=== PATIENT | female | born 1975 | race Caucasian/White ===

== ENCOUNTER 2021-10-08 19:53 | Emergency (ER) | payer OTHER ==
[~2021-10-08] VITALS: Ht 154.9 cm; Wt 79.4 kg
[2021-10-08] MEDS ORDERED: SEROQUEL XR400 MG PO (20:40)
[2021-10-08] MEDS ORDERED: DEPAKOTE ER500 M1 PO (20:41)
[2021-10-08] MEDS ORDERED: TRAZODONE HCL50 MG PO (20:41)
[2021-10-08] MEDS ORDERED: VISTARIL50 MG PO (20:41)
[2021-10-08] MEDS ORDERED: PROZAC40 MG PO (20:41)
[2021-10-08 21:09] LABS: ABSOLUTE NEUTROPHILS 6.5 thou/uL (1.4-8.2); BASOPHILS 0.3 % (0.0-2.0); HEMATOCRIT 37.3 % (37.0-47.0); HEMOGLOBIN 12.2 gm/dL (12.0-15.0); LYMPHOCYTES 6.3 % (24.0-44.0); MCH 29.9 pg (26.0-34.0); MCHC 32.6 g/dL (28.0-37.0); MCV 91.7 fL (80.0-100.0); MONOCYTES 6.2 % (1.0-8.0); PLATELET COUNT 225 thou/uL (150-400); POLYS 86.2 % (36.0-66.0); RBC 4.06 mil/uL (4.20-5.00); RDW 14.3 % (10.5-14.5); WBC 7.6 thou/uL (4.0-11.0)
[2021-10-08 21:11] LABS: AMP/METHAMP Negative (Negative); BARBITURATES Negative (Negative); BENZODIAZEPINES Negative (Negative); COCAINE POSITIVE (Negative); METHADONE Negative (Negative); OPIATES Negative (Negative); PCP Negative (Negative)
[2021-10-08 21:14] LABS: CALCIUM 8.4 mg/dL (8.5-10.1); CREATININE 0.6 mg/dL (0.6-1.0); POTASSIUM 3.3 mmol/L (3.5-5.1)
[2021-10-08 21:20] LABS: ALBUMIN 3.5 g/dL (3.4-5.0); TOTAL BILIRUBIN 0.6 mg/dL (0.2-1.0); TOTAL PROTEIN 7.3 g/dL (6.4-8.2)
[2021-10-08] MEDS ORDERED: ZOFRAN ODT4 MG PO (21:35)
[2021-10-08] MEDS ORDERED: NAPROSYN500 MG PO (21:35)
[2021-10-08 21:52] VITALS: BP 134/83
== END 2021-10-08 21:52 | disposition home or self-care (01) ==
LOC: ER 19:53
PROVIDERS: Emergency Medicine
DX: U07.1 COVID-19 (principal); R11.0 Nausea; Z79.899 Other long term (current) drug therapy

== ENCOUNTER 2021-10-13 06:53 | Emergency (ER) | payer OTHER ==
[~2021-10-13] VITALS: Ht 154.9 cm; Wt 79.4 kg
[~2021-10-13 06:53] MED LIST: DEPAKOTE ER500 M1 PO; NAPROSYN500 MG PO; PROZAC40 MG PO; SEROQUEL XR400 MG PO; TRAZODONE HCL50 MG PO; VISTARIL50 MG PO; ZOFRAN ODT4 MG PO
[2021-10-13 07:11] VITALS: BP 100/66
== END 2021-10-13 08:09 | disposition home or self-care (01) ==
LOC: ER 06:53
DX: U07.1 COVID-19 (principal); Z79.899 Other long term (current) drug therapy

== ENCOUNTER 2021-10-18 07:43 | Emergency (ER) | payer OTHER ==
[~2021-10-18] VITALS: Ht 154.9 cm; Wt 80.7 kg
[2021-10-18 11:19] LABS: HEMATOCRIT 41.2 % (37.0-47.0); HEMOGLOBIN 13.6 gm/dL (12.0-15.0); MCH 29.9 pg (26.0-34.0); MCV 90.5 fL (80.0-100.0); PLATELET COUNT 167 thou/uL (150-400); RBC 4.55 mil/uL (4.20-5.00); RDW 14.2 % (10.5-14.5); WBC 2.2 thou/uL (4.0-11.0)
[2021-10-18 11:31] LABS: CALCIUM 8.8 mg/dL (8.5-10.1); POTASSIUM 3.9 mmol/L (3.5-5.1)
[2021-10-18 11:38] LABS: ALBUMIN 2.9 g/dL (3.4-5.0); TOTAL BILIRUBIN 0.5 mg/dL (0.2-1.0); TOTAL PROTEIN 7.9 g/dL (6.4-8.2)
[2021-10-18 12:53] LABS: ABSOLUTE NEUTROPHILS 1.5 thou/uL (1.4-8.2); PLATELET ESTIMATE NORMAL
[2021-10-18 13:44] VITALS: BP 105/67
== END 2021-10-18 13:45 | disposition home or self-care (01) ==
LOC: ER 07:43
PROVIDERS: Emergency Medicine
DX: U07.1 COVID-19 (principal); F32.9 Major depressive disorder, single episode, unspecified; F41.9 Anxiety disorder, unspecified; F17.200 Nicotine dependence, unspecified, uncomplicated; Z79.899 Other long term (current) drug therapy

== ENCOUNTER 2021-10-24 11:18 | Emergency (ER) | payer OTHER ==
[~2021-10-24] VITALS: Ht 154.9 cm; Wt 79.4 kg
[2021-10-24 11:35] VITALS: BP 123/81
== END 2021-10-24 12:08 | disposition home or self-care (01) ==
LOC: ER 11:18
DX: R05.9 Cough, unspecified (principal); F32.9 Major depressive disorder, single episode, unspecified; F41.9 Anxiety disorder, unspecified; Z79.899 Other long term (current) drug therapy

== ENCOUNTER 2021-11-14 04:21 | Emergency (ER) | payer OTHER ==
[~2021-11-14] VITALS: Ht 154.9 cm; Wt 81.7 kg
[2021-11-14 04:29] VITALS: BP 128/91
== END 2021-11-14 05:10 | disposition home or self-care (01) ==
LOC: ER 04:21
DX: L29.8 Other pruritus (principal); F41.9 Anxiety disorder, unspecified; F32.9 Major depressive disorder, single episode, unspecified; F12.90 Cannabis use, unspecified, uncomplicated; Z79.899 Other long term (current) drug therapy